=== PATIENT | female | born 2000 | race Caucasian/White ===

== ENCOUNTER 2023-10-26 04:14 | Inpatient (IN) ==
[2023-10-26] MEDS ORDERED: LIDOCAINE 1% LOCAL 20 ML VIAL INFIL PRN (04:56)
--- NOTE | 2023-10-26 05:02 | History & Physical Report ---
Date of Service October 26, 2023 Assessment & Plan (1) Supervision of normal intrauterine in primigravida: Plan: primigravida IUP at 39+ weeks in active labor epidural when requested anticipate vaginal History of Present Illness Primary Care Provider: NO PCP Patient is a 23 yo female EDC 10/31/23 who presents at 39 2/7 weeks with regular contractions since 130. no SPROM or bloody show. uncomplicated. GBS-negative Allergies Allergy/AdvReac Type Severity Reaction Status Date / Time cetirizine [From [facility]] Allergy hair loss Verified 10/26/23 04:20 Home Medications Medication Instructions Recorded Confirmed Type vit 168-iron 27 mg-folic 27 cap PO 1XD 05/16/23 10/26/23 History acid 800 mcg-omega3 235 mg capsule (One-A-Day -1) ferrous sulfate 325 mg (65 mg 325 mg PO DAILY 08/25/23 10/26/23 History iron) tablet (Lauren-Time) Patient History Surgical History History of breast biopsy S/P wisdom tooth extraction Family History Grandmother (Maternal) Pulmonary fibrosis Mother Thyroid disease Social History Smoking Status: Never smoker Second Hand Exposure: No; Do You Dip or Chew Tobacco: No; Hx Alcohol Use: No Hx Substance Use: No Preferred Language: Irish Mold Preparer Required: No Beliefs That Will Affect Care: None marital status: marital status details: Renato (26) [phone] Current Living Situation: Spouse Current Living Situation Comment: lives with spouse current occupational status: employed current occupation: [employer] Director [employer] Other Information That Helps Us Care for You: No Feels Safe at Home: Yes Safety Concerns: Feels Safe At This Time Assistive Devices: Glasses Review of Systems All systems reviewed & are unremarkable except as noted in HPI & below Physical Exam Constitutional: WD/WN, vitals as above Psychiatric: A+Ox3, euthymic affect Genitourinary: OB Exam Abdomen: + vertex and + regular contractions (5-6 minutes) Manual OB Exam: + cervical dilation (4-5), + cervical effacement 90% and + station 0 OB Exam Monitor Tracing: + external FHT monitor used, + external uterine monitor used, + category I and + normal FHT variability Results & Data Vital Signs (Past 12 Hours) Vital Signs Temp Pulse Resp BP 10/26/23 04:34 96 H 125/74 10/26/23 04:30 98.1 F 20 Code Status & VTE Plan VTE Prophylaxis Plan VTE Prophylaxis will be ordered: No Coding Level of Care Code None Diagnoses Supervision of normal intrauterine in primigravida Z34.00
[2023-10-26] MEDS: LACTATED RINGER'S 1,000 ML IV PRN (05:05)
[2023-10-26 05:51] LABS: Hematocrit (blood only) 29.2 % (37.0-47.0); Hemoglobin 9.8 g/dl (12.0-16.0); Mean Corpuscular Hemoglobin 29.6 pg (25.0-34.0); Mean Corpuscular Hgb Conc 33.6 g/dL (32.0-36.0); Mean Corpuscular Volume 88.2 fL (80.0-100.0); Mean Platelet Volume 10.1 fL (9.4-12.4); Platelet Count 194 K/uL (130-400); RDW Coefficient of Variation 13.5 % (11.5-14.5); RDW Standard Deviation 43.7 fL (36.4-46.3); Red Blood Count 3.31 M/uL (4.20-5.40); White Blood Count 11.95 K/ul (4.8-10.8)
[2023-10-26] MEDS ORDERED: SODIUM CHLORIDE 0.9% 250 ML IV PRN (05:55)
[2023-10-26] MEDS ORDERED: diphenhydrAMINE 50 MG/ML VIAL IV PRN (06:09)
[2023-10-26] MEDS ORDERED: SODIUM CHLORIDE 0.9% PF INJ 10 ML VIAL EPI PRN (06:09)
[2023-10-26] MEDS ORDERED: BUPIVACAINE 0.25% PF 30 ML VIAL EPI PRN (06:09)
[2023-10-26] MEDS ORDERED: ROPIVACAINE 0.5% PF 5 MG/ML 20 ML VIAL EPI PRN (06:09)
[2023-10-26] MEDS ORDERED: NALBUPHINE HCL 5 MG in SYRINGE 0 ML IV PRN (06:09)
[2023-10-26] MEDS ORDERED: fentaNYL citrate PF 100 MCG/2 ML VIAL EPI PRN (06:09)
[2023-10-26] MEDS ORDERED: NALOXONE HCL 0.4 MG/1 ML VIAL/CARP IV PRN (06:09)
[2023-10-26] MEDS ORDERED: ePHEDrine sulfate 50 MG/ML AMP IV PRN (06:09)
[2023-10-26] MEDS ORDERED: LIDOCAINE 2% MPF LOCAL 5 ML VIAL EPI PRN (06:09)
[2023-10-26] MEDS ORDERED: NALOXONE HCL 1 MG in SODIUM CHLORIDE 0.9% 1,000 ML IV PRN (06:09)
--- NOTE | 2023-10-26 06:12 | Anesthesiology Consultation ---
Date of Service October 26, 2023 Assessment & Plan Chart Review Chart Review: Patient NOT seen in Pre Admission Testing and Acceptable Risk for Labor Epidural Consults Requested none ASA ASA2 Proposed Anesthesia Anesthesia Type: Labor Epidural Risk / Benefits Reviewed With: PT / POA / Parent / Guardian, Accepts Plan and Informed Consent Obtained History Height/Weight Height: 5 ft 4 in Weight: 72.575 kg Allergies Allergy/AdvReac Type Severity Reaction Status Date / Time cetirizine [From [facility]] Allergy hair loss Verified 10/26/23 04:20 Medications Home Medications Medication Instructions Recorded Confirmed Last Taken vit 168-iron 27 mg-folic 27 cap PO 1XD 05/16/23 10/26/23 Unknown acid 800 mcg-omega3 235 mg capsule (One-A-Day -1) ferrous sulfate 325 mg (65 mg 325 mg PO DAILY 08/25/23 10/26/23 Unknown iron) tablet (Lauren-Time) Active Medications Generic Name Dose Route Start Last Admin Trade Name Freq PRN Reason Stop Dose Admin Fentanyl/Bupivacaine/Sodium Chlor 100 ml 10/26/23 06:09 10/26/23 06:30 Fentanyl 2 Mcg/Ml Bupivacaine 0.125%-Nss 100ml Bag EPI 10/27/23 06:08 100 ml PRN PRN Administration Pain R/T Labor Protocol Lactated Ringer's 1,000 mls @ 125 mls/hr 10/26/23 04:56 10/26/23 05:05 Lr IV 10/28/23 04:55 999 mls/hr .Q8H PRN Administration L&D Protocol Protocol NPO Date Last Intake of Fluids: 10/26/23 Time Last Intake of Fluids: 06:00 Date Last Intake of Solids: 10/25/23 Time Last Intake of Solids: 16:00 Exercise / Class Metabolic Activity 1 > 8 Run/Swim/Ski/Tennis Past Family History Family History Grandmother (Maternal) Pulmonary fibrosis Mother Thyroid disease Past Surgical History Surgical History H/O dilation and curettage History of breast biopsy S/P wisdom tooth extraction Past Anesthesia History No Hx of Anesthesia Complications and No Family Hx of Anesthesia Complications History of PONV No Hx of PONV and No Hx of Motion Sickness Social History Smoking Status: Never smoker Do You Dip or Chew Tobacco: No Hx Alcohol Use: No Hx Substance Use: No substance use type: does not use Review of Systems ROS Unobtainable: All systems reviewed & are unremarkable except as noted in HPI & below Physical Exam Vital Signs Last Vital Signs Temp 36.7 C 10/26/23 04:30 Pulse 78 10/26/23 06:08 Resp 20 10/26/23 04:30 BP 125/74 10/26/23 04:34 Pulse Ox 99 10/26/23 06:08 ENMT Mouth: no TMJ abnormality Thyromental Distance: > or= 3.5 Finger Breadths Mallampati Class: II Neck normal visual inspection and trachea midline; neck extension not limited Respiratory normal respiratory effort Auscultation: lungs clear to auscultation bilaterally Cardiovascular Rate/Rhythm: regular rate and regular rhythm Heart Sounds: no murmur Musculoskeletal Spine: normal cervical ROM Extremities: full ROM of extremities Neurologic moves all extremities Psychiatric Orientation: alert and oriented x 3 Testing Laboratory Results 10/26/23 05:18
[2023-10-26] MEDS: LIDOCAINE 2%/EPINEPHRINE 1:200,000 20 ML PF EPI STA (06:29)
[2023-10-26] MEDS: BUPIVACAINE 0.25% PF 30 ML VIAL EPI STA (06:29)
[2023-10-26] MEDS: fentaNYL citrate PF 100 MCG/2 ML VIAL EPI STA (06:30)
[2023-10-26] MEDS: fentANYL 2 MCG/ML BUPIVacaine 0.125%-NSS 100ML BAG EPI PRN (06:30)
[2023-10-26] MEDS: SODIUM CHLORIDE 0.9% PF INJ 10 ML VIAL EPI STA (06:30)
[2023-10-26] MEDS ORDERED: OXYTOCIN 30 UNITS/NSS 30 UNITS/500 ML BAG IV PRN (10:46)
[2023-10-26] MEDS ORDERED: ACETAMINOPHEN 325 MG TAB PO PRN (10:46)
[2023-10-26] MEDS ORDERED: HYDROCORTISONE ACETATE 25 MG SUPP PR PRN (10:46)
[2023-10-26] MEDS: OXYTOCIN 30 UNITS/NSS 30 UNITS/500 ML BAG IV PRN (10:53)
--- NOTE | 2023-10-26 11:44 | Delivery Summary ---
Vaginal Delivery Summary Date of Service October 26, 2023 Vaginal Delivery Summary and 1st Degree LAC Progressive 10 cm dilated 100% effaced +2 station pushed over intact perineum with epidural anesthesia and delivered a viable female with weight and Apgars pending. Had the delivered in RODOLFO position transition to left transverse. No nuchal cord was noted. Body and shoulders quickly followed. was noted be vigorous upon delivery and a 1 minute delayed cord clamping was initiated. Cord was then double clamped and cut and remained on maternal abdomen. Tension was turned to delivery of placenta was delivered intact three-vessel cord gentle cord traction. Inspection of the perineum vagina and cervix there is noted to be a first-degree perineal laceration which was repaired with 3-0 Vicryl and continuous running stitch. Needle, sponge and instrument counts were correct at the completion of the case both mother and stable in the immediate postdelivery period. Estimated blood loss of 200 mL and no complications noted [facility] Vaginal Delivery Charge Delivery Type Details: and 1st Degree LAC
--- NOTE | 2023-10-26 13:20 | Anesthesia Procedure Note ---
Date of Service October 26, 2023 Anesthesia Post Epidural Note Vital Signs Vital Signs: Temp Pulse Resp BP Pulse Ox 37.0 C 103 H 18 127/72 97 10/26/23 09:00 10/26/23 13:14 10/26/23 12:29 10/26/23 13:14 10/26/23 10:53 Pain Intensity Abdomen: Pain Intensity: 0 Notes Mental Status: alert / awake / arousable and participated in evaluation Nausea / Vomiting: adequately controlled Pain: adequately controlled Airway Patency, RR, SpO2: stable & adequate BP & HR: stable & adequate Hydration State: stable & adequate Neuraxial Anesthesia: was administered and sensory block is resolving Anesthetic Complications: no major complications apparent Epidural: Removed without complications and With tip intact
[2023-10-26] MEDS: BENZOCAINE 20% SPRY 85 APPLN/85 GM CAN EXT PRN (14:22)
[2023-10-26] MEDS: fentaNYL citrate PF 100 MCG/2 ML VIAL ONE (15:09)
[2023-10-26] MEDS: SODIUM CHLORIDE 0.9% PF INJ 10 ML VIAL ONE (15:09)
[2023-10-26] MEDS: BUPIVACAINE 0.25% PF 30 ML VIAL ONE (15:09)
[2023-10-26] MEDS: ePHEDrine sulfate 50 MG/ML AMP ONE (15:09)
[2023-10-26] MEDS: fentANYL 2 MCG/ML BUPIVacaine 0.125%-NSS 100ML BAG ONE (15:10)
[2023-10-26] MEDS: LIDOCAINE 2%/EPINEPHRINE 1:200,000 20 ML PF ONE (15:10)
[2023-10-26] MEDS: DIPHTHER/TETAN/PERTUS Vaccine (Tdap, Adol/Adult) 0.5mL IM ONE (17:36)
[2023-10-26] MEDS: DOCUSATE SODIUM 100 MG CAP PO SCH (20:03)
[2023-10-26] MEDS: IBUPROFEN 600 MG TAB PO PRN (20:03)
[2023-10-27 06:41] LABS: Hematocrit (blood only) 30.1 % (37.0-47.0); Mean Corpuscular Hemoglobin 29.9 pg (25.0-34.0); Mean Corpuscular Hgb Conc 33.2 g/dL (32.0-36.0); Mean Corpuscular Volume 89.9 fL (80.0-100.0); Mean Platelet Volume 9.9 fL (9.4-12.4); Platelet Count 176 K/uL (130-400); RDW Coefficient of Variation 13.7 % (11.5-14.5); RDW Standard Deviation 45.1 fL (36.4-46.3); Red Blood Count 3.35 M/uL (4.20-5.40); White Blood Count 11.02 K/ul (4.8-10.8)
--- NOTE | 2023-10-27 06:52 | Obstetrical Progress Note ---
Date of Service <Lisandro Hubbard MD - Last Filed: 10/27/23 08:03> October 27, 2023 Assessment & Plan <Lisandro Hubbard MD - Last Filed: 10/27/23 08:03> (1) Spontaneous vaginal delivery: Plan 23 yo , status post , day 1 on 10/26/23 - Pt doing well clinically. Feels well today. Eating well, voiding well, ambulating well. Pain well controlled with PRN pain meds. - Routine care -- OOB, ambulation, diet progression as tolerated Vital Signs reviewed and WNL. (Tmax at 37.1) Hemoglobin Reviewed. 9.8 (10/27/23) 10.0 (today). Blood Type: O+, GBS-, Rubella Immune. Encourage ambulation, monitor and control pain with Motrin PRN, resume regular diet, monitor lochia. Breast feeding encouraged. After discharge will have 6 week follow-up with Dr. Mendieta.. <Frankie Mendieta MD - Last Filed: 10/27/23 08:44> (1) Spontaneous vaginal delivery: Subjective <Lisandro Hubbard MD - Last Filed: 10/27/23 08:03> Ambulation: ambulating normally Voiding: no voiding problems Passing Gas:: Yes Diet Tolerance:: regular diet Lochia:: Moderate Feeding Type:: breast feeding (supplemented w/ formula) Current Pain Level(1-10): 2 (normally noticed during ) Constitutional: no fever, no chills or no weakness Eyes: no diplopia or no worsening vision Ear, Nose, Mouth, Throat: no nasal congestion, no post nasal drip or no sore throat Respiratory: no cough, no chest congestion or no dyspnea Cardiovascular: no chest pain or no palpitations Gastrointestinal: no nausea, no vomiting, no constipation (still awaiting first BM post delivery) or no diarrhea/loose stools Genitourinary (female): no dysuria or no urinary frequency Neurologic: no tingling, no numbness or no headache(s) Physical Exam <Lisandro Hubbard MD - Last Filed: 10/27/23 08:03> Constitutional WD/WN, vitals as above Respiratory normal respiratory effort, lungs clear to auscultation Cardiovascular RRR, no murmur, no edema Extremities: no calf tenderness Gastrointestinal (Abdomen) Inspection/Auscultation: abdomen normal to inspection and normal bowel sounds Percussion/Palpation: + abdomen tender (diffusely and mildly tender) Results & Data <Lisandro Hubbard MD - Last Filed: 10/27/23 08:03> Vital Signs (Past 12 Hours) Vital Signs Temp Pulse Resp BP Pulse Ox O2 Del Method 10/27/23 03:20 36.6 C 80 18 112/71 97 Room Air 10/26/23 23:55 36.5 C 66 20 116/70 99 Room Air 10/26/23 19:25 36.9 C 90 18 135/74 99 Room Air Supervising Physician <Frankie Mendieta MD - Last Filed: 10/27/23 08:44> Co-Signing Physician Notes Seen and evaluated and agree with the above findings and plan. Day 1 status post vaginal delivery. Patient doing well and will continue routine care
[2023-10-27] MEDS: PRENATAL VITAMIN 1 TAB PO SCH (08:52)
[2023-10-27] MEDS: FERROUS SULFATE 325 MG TAB PO SCH (08:52)
--- NOTE | 2023-10-28 06:09 | Obstetrical Progress Note ---
Date of Service <Lisandro Hubbard MD - Last Filed: 10/28/23 07:49> October 28, 2023 Assessment & Plan <Lisandro Hubbard MD - Last Filed: 10/28/23 07:49> (1) Spontaneous vaginal delivery: Plan 23 yo , status post , day 2 following delivery on 10/26/23 - Pt doing well clinically. Feels well today. Eating well, voiding well, ambulating well. Still is waiting for first bowel movement. Pain well controlled with PRN pain meds. - Routine care -- OOB, ambulation, diet progression as tolerated Vital Signs reviewed and WNL. (Tmax at 37.1) Hemoglobin Reviewed. 9.8 (10/27/23) 10.0 (yesterday), 9.9 (today). Blood Type: O+, GBS-, Rubella Immune. Encourage ambulation, monitor and control pain with Motrin PRN, resume regular diet, monitor lochia. Breast feeding encouraged. After discharge will have 6 week follow-up with Dr. Mendieta.. <Vanessa Escobedo DO - Last Filed: 10/28/23 08:27> (1) Spontaneous vaginal delivery: Subjective <Lisandro Hubbard MD - Last Filed: 10/28/23 07:49> Ambulation: ambulating normally Voiding: no voiding problems Passing Gas:: Yes Diet Tolerance:: regular diet Lochia:: Small Feeding Type:: breast feeding (supplementing before colostrum turns to milk) Constitutional: no fever, no chills or no weakness Eyes: no diplopia or no worsening vision Ear, Nose, Mouth, Throat: + nasal congestion (some slight congestion); no post nasal drip or no sore throat Respiratory: no cough, no chest congestion or no dyspnea Cardiovascular: no chest pain or no palpitations Gastrointestinal: no nausea, no vomiting, no constipation (still awaiting first BM post delivery) or no diarrhea/loose stools Genitourinary (female): no dysuria or no urinary frequency Neurologic: no tingling, no numbness or no headache(s) Physical Exam <Lisandro Hubbard MD - Last Filed: 10/28/23 07:49> Constitutional WD/WN, vitals as above Respiratory normal respiratory effort, lungs clear to auscultation Cardiovascular RRR, no murmur, no edema Extremities: no calf tenderness Gastrointestinal (Abdomen) Inspection/Auscultation: abdomen normal to inspection and normal bowel sounds Percussion/Palpation: + abdomen tender (diffusely and mildly tender) Psychiatric A+Ox3, euthymic affect Results & Data <Lisandro Hubbard MD - Last Filed: 10/28/23 07:49> Vital Signs (Past 12 Hours) Vital Signs Temp Pulse Resp BP Pulse Ox O2 Del Method 10/27/23 23:06 36.8 C 87 16 126/78 97 Room Air 10/27/23 20:25 Room Air 10/27/23 19:42 36.4 C L 88 18 122/80 98 Room Air Supervising Physician <Vanessa Escobedo DO - Last Filed: 10/28/23 08:27> Co-Signing Physician Notes Resident Physician Supervision Note: I interviewed and examined the patient. Discussed with Dr. Hubbard and agree with findings and plan as documented in the note. Any exceptions or clarifications are listed here: PPD#2 doing well DC home. Documented By: Vanessa Escobedo DO
[2023-10-28 06:27] LABS: Hematocrit (blood only) 29.2 % (37.0-47.0); Hemoglobin 9.9 g/dl (12.0-16.0)
== END 2023-10-28 14:15 | disposition home or self-care (01) | DRG 807 ==
LOC: OPB 04:14 → 4S1 04:17 → 4E2 14:10

== ENCOUNTER 2024-12-24 05:17 | Inpatient (IN) ==
[2024-12-24] MEDS ORDERED: LIDOCAINE 1% LOCAL 20 ML VIAL INFIL PRN (05:52)
[2024-12-24] MEDS ORDERED: CALCIUM CARBONATE 500 MG CHEWABLE TAB PO PRN (05:52)
[2024-12-24] MEDS ORDERED: ACETAMINOPHEN 500 MG TAB PO PRN (05:52)
--- NOTE | 2024-12-24 06:18 | History & Physical Report ---
Date of Service December 24, 2024 Assessment & Plan (1) Normal labor: Plan Active labor. Offered attempt at epidural vs. arom and having baby. Will do the later. fetus category one. anticipate . Admission and Anticipated Discharge Date Admission Date: December 24, 2024 History of Present Illness Chief Complaint: contractions Primary Care Provider: NO PCP Patient is a 24yowf with iop at 39 weeks. Contractions started at 3am. Notes no lof. some bloody show. +fm. and Delivery Plans Hep B non-immune offer vaccine Low Iron @ 28wks *Recheck H&H @ 32wks. Hematology consult- OB Labs: Blood Type O Positive 05/20/24 Antibody Screen NEGATIVE 05/20/24 Hgb 9.5 g/dl (12.0-16.0) L 11/28/24 Hct 28.7 % (37.0-47.0) L 11/28/24 MCV 85.7 fL (80.0-100.0) 11/28/24 Plt Count 207 K/uL (130-400) 11/28/24 Rubella IgG Antibody Immune (Immune) 05/20/24 Treponema pallidum Ab Negative (Negative) 10/08/24 Hep Bs Antigen Negative (Negative) 05/20/24 Hepatitis C Antibody Negative (Negative) 05/20/24 HIV 1&2 Ab/P24 Ag 4thGn Negative (Negative) 05/20/24 Glucose 1 Hr 50 gm 142 mg/dl (70-130) H 10/08/24 OB Optional Labs: Chlamydia trachomatis RNA Not Detected (NotDetected) 05/20/24 Neisseria gonorrhoeae RNA Not Detected (NotDetected) 05/20/24 Labs Reviewed: cfdna-low risk--mln gbs neg Allergies Allergy/AdvReac Type Severity Reaction Status Date / Time cetirizine [From [facility]] Allergy hair loss Verified 12/23/24 14:19 Home Medications Medication Instructions Recorded Confirmed Type 21-iron fu-folic acid PO 05/15/24 12/23/24 History [ Complete] Patient History Medical History Varicella vaccination Spontaneous vaginal delivery Surgical History H/O dilation and curettage History of breast biopsy S/P wisdom tooth extraction Family History Grandmother (Maternal) Pulmonary fibrosis Mother Thyroid disease Denies family history of Ovarian cancer Breast cancer Colorectal cancer Social History Smoking Status: Never smoker Second Hand Exposure: No; Do You Dip or Chew Tobacco: No; Hx Alcohol Use: No Hx Substance Use: No Preferred Language: [place] Court Deputy Required: No Beliefs That Will Affect Care: None marital status: marital status details: Renato (27) [phone] Current Living Situation: Spouse and Family Current Living Situation Comment: lives with spouse, child, no pets current occupational status: employed current occupation: operator receptionist public health advisor Feels Safe at Home: Yes Assistive Devices: Glasses Physical Exam Constitutional: WD/WN, vitals as above Gastrointestinal (Abdomen): soft, gravid Psychiatric: A+Ox3, euthymic affect Genitourinary: cx--9/100/+1 bulging bag toco--q3-5min efm--150s with mod variability, small accels, no decels Results & Data Vital Signs (Past 12 Hours) Vital Signs Pulse BP 12/24/24 05:34 90 131/75 Code Status & VTE Plan VTE Prophylaxis Plan VTE Prophylaxis will be ordered: No Reason for no VTE drug order: Treatment not indicated Coding Level of Care Code None Diagnoses Normal labor O80; Z37.9
[2024-12-24 06:34] LABS: Hematocrit (blood only) 32.7 % (37.0-47.0); Hemoglobin 10.9 g/dl (12.0-16.0); Mean Corpuscular Hgb Conc 33.3 g/dL (32.0-36.0); Platelet Count 174 K/uL (130-400); RDW Coefficient of Variation 19.9 % (11.5-14.5); RDW Standard Deviation 61.9 fL (36.4-46.3); Red Blood Count 3.76 M/uL (4.20-5.40); White Blood Count 10.43 K/ul (4.8-10.8)
[2024-12-24] MEDS: OXYTOCIN 30 UNITS/NSS 30 UNITS/500 ML BAG IV PRN (06:42)
[2024-12-24] MEDS: LACTATED RINGER'S 1,000 ML IV PRN (06:52)
--- NOTE | 2024-12-24 06:55 | Delivery Summary ---
Vaginal Delivery Summary Date of Service December 24, 2024 Vaginal Delivery Summary and 1st Degree LAC Pre-operative Diagnosis: at 39 weeks active labor Post-operative Diagnosis: same Procedure: arom first degree laceration and repair QBL: 100cc Anesthesia: local lidocaine Procedure: The patient presented to labor and delivery at 9cm. She underwent arom for clear fluid. The patient pushed for one contraction to deliver a viable female infant in kelly position. The nose and mouth were bulb suctioned on the perineum and the rest of the infant was then delivered without difficulty. A nuchal cord was reduced prior to the delivery of the baby. The baby was vigorous. The nose and mouth were again bulb suctioned and the infant was placed in the maternal abdomen for drying and attention. Cord was clamped and cut at one minute of life. Cord blood and segment obtained. Placenta delivered spontaneous, intact with a three vessel cord. Cervix/sulci/rectum were intact. A first degree perineal laceration was repaired in the normal standard fashion after infiltrating with lidocaine Hemostasis obtained with dilute pitocin and fundal massage. Apgars were pending. Mother and baby doing well at the end of the delivery. [facility] [place] Vaginal Delivery Charge Delivery Type Details: and 1st Degree LAC
[2024-12-24] MEDS ORDERED: bisacodyL 10 MG SUPP PR PRN (07:11)
[2024-12-24] MEDS ORDERED: BENZOCAINE 20% SPRY 85 APPLN/85 GM CAN EXT PRN (07:11)
[2024-12-24] MEDS ORDERED: oxyCODONE/ACETAMINOPHEN 5mg/325mg TAB PO PRN (07:11)
[2024-12-24] MEDS ORDERED: OXYTOCIN 30 UNITS/NSS 30 UNITS/500 ML BAG IV PRN (07:11)
[2024-12-24] MEDS ORDERED: DIPHTHER/TETAN/PERTUS Vaccine (Tdap, Adol/Adult) 0.5mL IM ONE (07:11)
[2024-12-24] MEDS ORDERED: IBUPROFEN 600 MG TAB PO PRN (07:11)
[2024-12-24] MEDS ORDERED: HYDROCORTISONE ACETATE 25 MG SUPP PR PRN (07:11)
[2024-12-24] MEDS: ACETAMINOPHEN 325 MG TAB PO PRN (07:26)
[2024-12-24] MEDS: PRENATAL VITAMIN 1 TAB PO SCH (11:32)
[2024-12-24] MEDS: DOCUSATE SODIUM 100 MG CAP PO SCH (11:32)
[2024-12-24 12:21] VITALS: O2SAT 98
[2024-12-25 03:25] VITALS: TEMP 98.1
[2024-12-25 06:20] LABS: Hematocrit (blood only) 31.4 % (37.0-47.0); Hemoglobin 10.3 g/dl (12.0-16.0)
--- NOTE | 2024-12-25 06:49 | Obstetrical Progress Note ---
Date of Service December 25, 2024 Assessment & Plan (1) Encounter for assessment: Plan: Patient is PPD 1 s/p and doing well - Eating well, voiding well, ambulating well - vitals reviewed and within normal limits - pain well controlled with analgesics - OOB, ambulation, diet progression as tolerated - Blood type: O+, GBS neg, rubella immune - Plan to discharge today - After discharge, 6 week follow up with [facility]YN Admission and Anticipated Discharge Date Admission Date: December 24, 2024 Supervising Physician Co-Signing Physician Notes Resident Physician Supervision Note: I interviewed and examined the patient. Discussed with Dr. Garcia and agree with findings and plan as documented in the note. Any exceptions or clarifications are listed here: [ ] Documented By: Marie Munoz MD, FACOG Subjective 24 yo post- day 1 s/p Ambulation: ambulating normally Voiding: no voiding problems Passing Gas:: Yes Diet Tolerance:: regular diet Lochia:: Small Feeding Type:: bottle feeding Current Pain Level:1/10 Resting comfortably this AM in NAD. Denies ROLLINS, CP, SOB, N/V/D, LE pain/swelling. Physical Exam Physical Exam: General: patient resting comfortably, NAD, non-toxic in appearance, answers questions appropriately. Skin: warm, dry, intact HEENT: NC/AT, anicteric sclera, conjunctiva without injection, moist mucus membranes. Heart: +S1/S2, regular, no m/r/g Lungs: equal air entry bilaterally, no rales/rhonchi/wheezes Abd: +BS, soft, NT/ND, uterine fundus firm at umbilicus Ext: warm, no clubbing/cyanosis or edema Neuro: nonfocal, speech intact, no facial droop, moving all extremities. Results & Data Vital Signs (Past 12 Hours) Vital Signs Temp Pulse Resp BP O2 Del Method 12/25/24 03:24 36.7 C 91 H 16 120/79 Room Air 12/25/24 00:08 36.5 C 73 16 115/72 Room Air 12/24/24 20:30 36.7 C 93 H 16 128/76 Room Air Resident Activity Tracking Resident Involvement: Resident Care Provided Care Provided: OB Delivery
[2024-12-25 09:30] VITALS: RESP 18
[2024-12-25 10:40] VITALS: BP 120/79; PULSE 91
[2024-12-25] MEDS ORDERED: bisacodyL 5 MG TABEC PO SCH (20:00)
== END 2024-12-25 13:15 | disposition home or self-care (01) | DRG 807 ==
LOC: OPB 05:17 → 4S1 05:20 → 4E2 09:30